=== PATIENT | male | born 1965 | race Caucasian/White ===

== ENCOUNTER 2023-07-15 21:15 | Observation (INO) | payer BC ==
[2023-07-15] MEDS: Sodium Chloride 0.9% 1,000 ML IV SCH (22:30)
[2023-07-15 23:12] VITALS: BMI 29.7
[2023-07-15] MEDS ORDERED: Acetaminophen 325 MG TAB PO PRN (23:15)
[2023-07-15] MEDS ORDERED: Ondansetron PF 4 MG/2 ML Vial IVP PRN (23:15)
[2023-07-15] MEDS ORDERED: Ondansetron ODT 4 MG TAB SL PRN (23:15)
[2023-07-16] MEDS: Sodium Chloride 0.9% 1,000 ML IV SCH (05:58)
[2023-07-16] MEDS ORDERED: Glucagon 1 MG/ML KIT IM PRN (06:19)
[2023-07-16] MEDS ORDERED: Dextrose 50% Abboject 50 ML SYRINGE SLOW IVP PRN (06:19)
[2023-07-16] MEDS ORDERED: HumaLOG 300 UNITS/3 ML VIAL SC PRN ×2 (06:19)
[2023-07-16] MEDS ORDERED: Acetaminophen 650 MG Suppository PR PRN (06:19)
[2023-07-16] MEDS ORDERED: Dextrose 5% in Water 1,000 ML IV PRN (06:19)
[2023-07-16 07:06] LABS: #Neutrophils 10.2 thou/uL (1.40-6.50); %Basophils 0.1 % (0.0-1.0); %Lymphocytes 9.5 % (21.0-51.0); %Monocytes 8.3 % (0.0-10.0); %Neutrophils 81.6 % (42.0-75.0); Hematocrit 41.8 % (42.0-52.0); Hemoglobin 14.2 g/dL (14.0-18.0); Mean Corpuscular Hemoglobin 31.2 pg (27.0-31.0); Mean Corpuscular Volume 91.9 fl (78.0-98.0); Mean Platelet Volume 9.5 fL (7.4-10.4); Platelet Count 217 10x3/uL (130-400); RBC Distribution Width 12.6 % (11.5-14.5); Red Blood Cell (RBC) Count 4.55 mill/uL (4.70-6.10); White Blood Cell (WBC) Count 12.5 10x3/uL (4.8-10.8)
[2023-07-16 07:26] LABS: Anion Gap 13 mmol/L (10-20); BUN (Urea Nitrogen) 28 mg/dL (8.4-25.7); Calc. Creatinine Clearance 55 mL/min (70-130); Calcium 8.9 mg/dL (7.8-10.44); Carbon Dioxide 20 mmol/L (22-29); Chloride 110 mmol/L (98-107); Estimated GFR 35; Glucose 204 mg/dL (70-105); Potassium 4.4 mmol/L (3.5-5.1); Sodium 139 mmol/L (136-145)
[2023-07-16 07:48] LABS: HBCM Index 0.06 S/CO (0-0.79); HBSAg Index 0.28 S/CO (0-0.99); Hep A IgM AB Non-Reactive S/CO (NonReactive); Hep A IgM S/CO 0.18 S/CO (0-0.79); Hep B Surf Ag Non-Reactive S/CO (NonReactive); Hep C IgG Ab Non-Reactive S/CO (NonReactive); Hep C Index 0.06 S/CO (0-0.79); Hepatitis B Core IgM Abs Non-Reactive S/CO (NonReactive)
[2023-07-16 12:04] VITALS: BP 139/77; TEMP 98.2
[2023-07-17] MEDS ORDERED: Atorvastatin Calcium 40 MG TAB PO SCH (09:00)
[2023-07-17] MEDS ORDERED: Hydrochlorothiazide 25 MG TAB PO SCH (09:00)
[2023-07-17] MEDS ORDERED: Amlodipine 10 MG TAB PO SCH (09:00)
[2023-07-17] MEDS ORDERED: Empagliflozin 25 MG TAB PO SCH (09:00)
[2023-07-17] MEDS ORDERED: Losartan 25 MG TAB PO SCH (09:00)
[2023-07-17] MEDS ORDERED: Pramipexole Di-HCl 0.25 MG TAB PO SCH (09:00)
[2023-07-17] MEDS ORDERED: IRBESARTAN 150 MG PO SCH (09:00)
== END 2023-07-16 14:34 | disposition home or self-care (01) ==
LOC: T4-B 23:00
PROVIDERS: ADMIT Student in an Organized Health Care Education/Training Program; ATTEND Family Medicine
DX: E11.65 Type 2 diabetes mellitus with hyperglycemia (principal); I10 Essential (primary) hypertension; E11.10 Type 2 diabetes mellitus with ketoacidosis without coma; Z88.8 Allergy status to other drugs, medicaments and biological substances; Z79.84 Long term (current) use of oral hypoglycemic drugs; Z79.899 Other long term (current) drug therapy
CPT/HCPCS: 36415; 36416; 76705; 80048; 80074; 85025; G0378; J7050